=== PATIENT | male | born 1965 | race Caucasian/White ===

== ENCOUNTER → 2022-10-22 | Outpatient (CLI) | payer BC, SELFPAY ==
--- NOTE | 2022-10-22 14:27 | NEURO ---
NCS and/or EMG Patient Report Ordering Doctor: Juan Carlos Lamar DATE OF SERVICE: 10/22/22 Phill presents electrodiagnostic testing of the lower limbs. He reports tingling and pain from the right knee to the foot. He reports sharp shooting pains from the low back to the left knee. Electrodiagnostic findings: Peroneal motor nerve demonstrates normal distal latency, amplitude and conduction velocity bilaterally. Normal tibial motor response bilaterally. Sensory responses are within normal limits. Prolonged left peroneal F-wave. Prolonged H reflex bilaterally. Needle EMG testing reveals 1+ fibrillations bilaterally in the anterior tibialis, in the left vastus medialis and right gastrocnemius. 1+ fibrillations noted bilaterally in the lumbar paraspinals. Motor unit action potentials of normal amplitude and duration Electrodiagnostic impression: This is an abnormal study in the lower limbs. 1. Electrodiagnostic findings consistent with acute right L5 and S1 radiculopathy. Findings consistent with acute left-sided L4 radiculopathy. Recommend correlation with lumbar spine MRI. 2. No electrodiagnostic evidence is noted for peripheral polyneuropathy.
== END | disposition home or self-care (01) ==
LOC: PSN 12:03
PROVIDERS: PCP Family Medicine; Referring Provider Orthopaedic Surgery; Visit Provider Orthopaedic Surgery
DX: M47.26 Other spondylosis with radiculopathy, lumbar region (principal); R20.2 Paresthesia of skin
CPT/HCPCS: 95886; 95912

== ENCOUNTER 2023-04-23 07:07 | Observation (INO) | payer BC, SELFPAY ==
--- NOTE | 2023-04-01 12:01 | RAD_ITS ---
STUDY: X-RAY CHEST REASON FOR EXAM: Male, 58 years old. PREOP TECHNIQUE: XR Chest 2 Views COMPARISON: None FINDINGS: There is no demonstrated pleural abnormality. Normal size heart. Normal mediastinum and arnulfo. Normal visualized pulmonary arteries. Normal visualized aortic arch and descending thoracic aorta. There are diffuse degenerative changes of the visualized thoracic spine. Normal visualized ribs, clavicles, and shoulders. There are no acute findings of the upper abdomen. RAD/Chest PA and Lateral IMPRESSION: There are no acute findings. Electronically Signed: J Carlos Banegas MD at 14:13 EDT ,
--- NOTE | 2023-04-01 12:02 | EKG12_ITS ---
Test Reason : PREOP Blood Pressure : / mmHG Vent. Rate : 075 BPM Atrial Rate : 075 BPM P-R Int : 152 ms QRS Dur : 098 ms QT Int : 404 ms P-R-T Axes : 042 043 039 degrees QTc Int : 451 ms Normal sinus rhythm Nonspecific T wave abnormality Abnormal ECG Confirmed by ORAL GIL, CAIN ([id number]), manager editorial MAURISIO PEREZ ([id number]) on 04/02/2023 9:00:34 AM Referred By: Juan Carlos Lamar Confirmed By:ALIA MIXON MD
[2023-04-01 12:38] LABS: Absolute Lymphocyte Count 1.98 X10^3/uL (0.83-4.51); Absolute Neutrophil Count 3.7 X10^3/uL (2.0-7.7); Basophil# 0.06 X10^3/uL; Basophil% 0.9 % (0-1); Eosinophil# 0.16 X10^3/uL; Eosinophils% 2.5 % (0-5); Hematocrit 44.9 % (40-54); Hemoglobin 14.6 g/dL (13.0-16.5); Lymphocyte # 1.98 X10^3/ul (0.83-4.51); Lymphocyte % 30.4 % (19-41); Mean Corp Hgb Conc 32.5 g/dL (32-36); Mean Corpuscular Hgb 27.4 pg (27.0-32.0); Mean Corpuscular Volume 84.4 fL (80-94); Mean Platelet Vol. 9.5 fl (6.2-12.0); Monocyte# 0.57 X10^3/uL; Monocyte% 8.8 % (0-10); NRBC Flagged by Analyzer 0 % (0-5); Neutrophil % 56.8 % (47-70); Platelet Count 259 K/mm3 (150-450); RBC Distribution Width CV 13.5 % (11.6-14.6); RBC Distribution Width SD 41.4 fl (35.1-43.9); Red Blood Count 5.32 M/mm3 (4.6-6.2); White Blood Count 6.5 K/mm3 (4.4-11.0)
[2023-04-01 12:39] LABS: International Normalized Ratio 1.1; Prothrombin Time (Protime)PT. 13.8 SECONDS (11.7-14.9)
[2023-04-01 12:40] LABS: Partial Thromboplast Time 30.9 Seconds (24.1-36.2)
[2023-04-01 12:57] LABS: Anion Gap 3 (5-15); BUN 20 mg/dL (7-18); BUN/Creat Ratio 19.4 RATIO (10-20); Calcium,Total 8.7 mg/dL (8.5-10.1); Chloride 105 mmol/L (98-107); Creatinine, Serum 1.03 mg/dL (0.70-1.30); EST Glomerular Filtration Rate 79 mL/min (>60); Est Glom Filt Rate - Afr Amer 95 mL/min (>60); Glucose 129 mg/dL (74-106); Potassium 3.6 mmol/L (3.5-5.1); Sodium Level 137 mmol/L (136-145)
[2023-04-23] VITALS (21 sets, daily range): BP systolic 116–177; BP diastolic 72–102; PULSE 78–114; RESP 12–30; TEMP 36.6–37.3; O2SAT 83–98; BMI 34.7
[2023-04-23] MEDS: Lactated Ringers 1,000 ML 15 ML IV (06:53)
--- NOTE | 2023-04-23 07:04 | DS.PCM_ITS ---
Providers Date of Admission: 04/23/23 Primary Care Physician: Dr. Zion Alston MD Reason For Visit: LUMBAR 4 - LUMBAR 5, LUMBAR 5 - SAC Diagnosis Discharge Diagnosis (1) Lumbar stenosis: Status: Acute Code(s): M48.061 - Spinal stenosis, lumbar region without neurogenic claudication Medications at Discharge Home Medications acetaminophen 325 mg tablet (Pain Relief (acetaminophen)) 650 mg PO DAILY 03/30/23 amlodipine 10 mg tablet 10 mg PO DAILY 03/30/23 cetirizine 10 mg tablet (24Hour Allergy) 10 mg PO DAILY 03/30/23 hydrochlorothiazide 25 mg tablet 25 mg PO DAILY 03/30/23 latanoprost 0.005 % eye drops 1 drp ophthalmic (eye) DAILY 03/30/23 hydrocodone-acetaminophen 5-325mg 5mg-325mg 1 tab PO Q6H 7 days #28 tabs 04/23/23 Hospital Course Operations - (L4-5, L5-S1 posterior lumbar interbody fusion, decompression, posterior spinal fusion with instrumentation, use of allograft) Summary of Care Provided Minutes Spent on Discharge: 15 Hospital Course: The patient is a 58-year-old male who underwent L4-5, L5-S1 fusion on 04/23/2023. He was subsequently admitted. The hospitalist was consulted for medical management. He progressed well. His pain was controlled and he was mobilizing well. His drain was pulled on postoperative day 1. No significant medical issues were reported. He was subsequently discharged home on 04/24/2023 to follow-up with Dr. Lamar in 3 weeks Physical Exam Const alert, oriented x3 and no apparent distress General Appearance: cooperative, comfortable and well kempt HEENT normocephalic and head/scalp atraumatic Head and Scalp: normal to inspection Eyes EOMs intact bilaterally and conjunctivae normal Neck full ROM General: normal visual inspection Chest inspection of chest normal and palpation of chest normal Resp normal respiratory effort and normal air movement Effort and Inspection: able to speak in complete sentences Cardio regular rate and peripheral pulses 2+ throughout GI soft to palpation, non-tender and non-distended Back/Spine Back/Spine Narrative: Dressing clean dry and intact. Incision well approximated with interrupted sutures in place. Drain pulled Cervical Spine: cervical ROM normal Thoracic Spine / Upper Back: normal to inspection Lumbar Spine / Lower Back: normal to inspection Extremity normal to inspection, full ROM, normal capillary refill, no clubbing, cyanosis or edema and no calf tenderness Skin no rashes or lesions noted General Skin Exam: no breakdown Neuro oriented x3, CN's II-XII intact bilaterally, moves all extremities, no focal motor deficits, no sensory deficits noted and deep tendon reflexes 2+ bilat erally Motor Exam: strength 5/5 throughout and muscle tone normal throughout Weight / BMI Weight Weight: 242 lb 8.136 oz Body Mass Index (BMI) 34.7 ABG / Lab / Microbiology Data 04/01/23 12:20 04/01/23 12:20 D/C Instructions Discharge Diet: No restrictions Weight Bearing Status: Weight bearing as tolerated Additional Activity Instructions: No repetitive bending twisting or lifting g reater than 5 pounds. Wear back brace at all times Call your doctor if your incision/area has: Continuous Slow Oozing, Sudden Increased Bleeding, Increased Pain/ Swelling, Increased Redness, Foul Smelling Discharge and Swelling at the incision site Call your doctor if you observe: Fever of 101 or Higher, Coldness, Increased Pain, Numbness or Tingling, Change in Color, Inability to urinate, Inability to have a bowel movement, Using more than 1 pad per hour, Shortness of breath, Dizziness, Fainting spells, Swelling in the ankles, Chest pain, Prolonged hiccupping, Increased palpitations (irregular heartbeat), Calf discomfort and Uncontrolled pain Cleanse incision/area with: Do not get Incision Wet and Keep Dressing Clean & Dry Additional Dressing/Incision Instructions: Change dressing daily with iodine gauze and tape. Use waterproof dressing to shower Additional Instructions: 1. During your procedure, you received sedation through your IV. Please follow these instructions for the next 24 hours: Do not drive a motor vehicle, do not drink any alcoholic beverages, and do not sign any legal documents or make personal or business decisions. A responsible adult should stay with you at least 6 hours after the procedure. 2. Keep your surgical site/incision clean and the dressing dry and intact. You may use an ice pack at the surgical site to reduce any swelling or discomfort. 3. Monitor the incision site for any signs or symptoms of infection. Watch for redness, excessive swelling or drainage, or continued pain at the incision site after 3 days. Contact your physician immediately for a fever, chills or a temperature of 101.5? F or greater. 4. Take your medication exactly as prescribed by your physician. Do not attempt to wean yourself off any of your medications even though your pain is improving. This process needs to be carefully monitored by your doctor. Take any antibiotics prescribed exactly as directed and until they are gone. 5. Avoid stretching, bending, pulling, twisting or any sudden movements. Do not bend or twist at the waist. Wear back brace at all times 6. No lifting greater than 5 pounds. 7. Do not operate a motor vehicle, equipment or a power tool while taking pain medication 8. Do not have any manipulation done by a chiropractor or any other physician without first consulting with the surgeon 9. Please contact our office if you are even scheduled for a CT scan or an MRI. 10. Please call us if you have any questions, problems or concerns. Please Follow Up With: Juan Carlos Lamar DO When: 3 weeks Meaningful Use Info Meaningful Use Diagnoses (Choose all that apply): None applicable Discharge Plan Admission Admit Date/Time: 04/23/23 07:07 Attending Provider: Juan Carlos Lamar Primary Care Provider: Zion Alston Consulting Providers: Lovely Gupta Instructions Additional Instructions / Restrictions: 1. During your procedure, you received sedation through your IV. Please follow these instructions for the next 24 hours: Do not drive a motor vehicle, do not drink any alcoholic beverages, and do not sign any legal documents or make personal or business decisions. A responsible adult should stay with you at least 6 hours after the procedure. 2. Keep your surgical site/incision clean and the dressing dry and intact. You may use an ice pack at the surgical site to reduce any swelling or discomfort. 3. Monitor the incision site for any signs or symptoms of infection. Watch for redness, excessive swelling or drainage, or continued pain at the incision site after 3 days. Contact your physician immediately for a fever, chills or a temperature of 101.5? F or greater. 4. Take your medication exactly as prescribed by your physician. Do not attempt to wean yourself off any of your medications even though your pain is improving. This process needs to be carefully monitored by your doctor. Take any antibiotics prescribed exactly as directed and until they are gone. 5. Avoid stretching, bending, pulling, twisting or any sudden movements. Do not bend or twist at the waist. Wear back brace at all times 6. No lifting greater than 5 pounds. 7. Do not operate a motor vehicle, equipment or a power tool while taking pain medication 8. Do not have any manipulation done by a chiropractor or any other physician without first consulting with the surgeon 9. Please contact our office if you are even scheduled for a CT scan or an MRI. 10. Please call us if you have any questions, problems or concerns. Discharge Orders/Prescriptions Prescriptions: New hydrocodone-acetaminophen 5-325 mg tablet 1 tab PO Q6H 7 Days Qty: 28 0RF Continued amlodipine 10 mg tablet 10 mg PO DAILY Patient Comments: TAKE 1 TABLET BY MOUTH EVERY DAY hydrochlorothiazide 25 mg tablet 25 mg PO DAILY Patient Comments: TAKE 1 TABLET BY MOUTH EVERY DAY latanoprost 0.005 % drops 1 drp ophthalmic (eye) DAILY Patient Comments: INSTILL 1 DROP INTO BOTH EYES AT BEDTIME DIRECTED acetaminophen [Pain Relief (acetaminophen)] 325 mg tablet 650 mg PO DAILY cetirizine [24Hour Allergy] 10 mg tablet 10 mg PO DAILY Discontinued meloxicam 15 mg tablet 15 mg PO DAILY Patient Comments: TAKE 1 TABLET BY MOUTH EVERY DAY Other Ambulatory Orders: 12 Lead EKG (Routine) Timeframe: [id number] Location: None Selected Ordered By: Dr. Juna Carlos Lamar Referrals / Follow Up: Juan Carlos Lamar DO [Med Staff - Active Staff] - Zion Alston MD [Primary Care Provider] - Disposition Disposition (needs filled in before D/C Order can be placed): Home, Self Care
--- NOTE | 2023-04-23 07:04 | OP.PCM_ITS ---
Problems Associated Problem List Diagnoses (1) Lumbar stenosis: Report of Operation Date of Procedure: 04/23/23 Description of Surgical Findings:: Preop diagnosis: 1. Lumbar stenosis L4-5, L5-S1 with spondylosis 2. Lumbar degenerative disc disease L4-5, L5-S1 Postop diagnosis: 1. Lumbar stenosis L4-5, L5-S1 with spondylosis 2. Lumbar degenerative disc disease L4-5, L5-S1 Procedures performed: 1. L4-5 posterior lumbar interbody fusion 2. L5-S1 posterior lumbar interbody fusion 3. Insertion of intervertebral biomechanical device x2 4. Structural allograft for spinal fusion 5. L4 bilateral laminectomies, foraminotomies, facetectomies, decompression of bilateral nerve roots 6. L5 bilateral laminectomies, foraminotomies, facetectomies, decompression of bilateral nerve roots 7. S1 bilateral laminectomies, foraminotomies, facetectomies, decompression of bilateral nerve roots 8. L4-5 posterolateral fusion 9. L5-S1 posterior lateral fusion 10. Pedicle screw fixation 11. Local autograft for spinal fusion 12. Neuro monitoring bilateral upper and bilateral lower extremities Statement of medical necessity: The patient is a 58-year-old male with intractable back and leg pain. Image studies confirm the above diagnoses. They have failed conservative treatments to include medications physical therapy and injections and have opted for operative intervention understanding the risk to include but not limited to infection, bleeding, damage to nerves arteries and veins, possibility of spinal fluid leak, nonunion, hardware failure, continued pain, need for further surgery, deep vein thrombosis, pulmonary embolism, heart attack, risk of stroke or . Description of the procedure: The patient was identified in the preoperative holding area. There they received preoperative IV antibiotics and was then transferred to the operative suite. Once in the operative suite after general endotracheal anesthesia was established, the patient was positioned prone on the [place] operating table. All bony prominences were padded accordingly. The lumbar spine was prepped and draped in a standard fashion. Bear hugger's were not turned on until the drapes were placed and sealed with Ioban. A midline incision was made and taken down to the fascia. The fascia was divided and subperiosteal dissection was taken down to the level of the transverse processes and sacral ala of L4, L5, and S1 bilaterally. Deep retractors were placed. A bone scalpel was used to make cuts in the lamina and then a series of rongeurs and Kerrisons were used removing the spinous process and lamina of L4, L5, and S1. Then facetectomies of greater than 50% were performed as well as foraminotomies decompressing the bilateral nerve roots. Given the severity of the stenosis I needed to perform wide bilateral laminectomies and near complete facetectomies in order to decompress the neural elements. Disc created instability necessitating the fusion. I then proceeded with interbody fusion. The nerve roots and dura were identified and retracted medially. A knife was utilized to perform an annulotomy at L4-5. Endplate elevators, curettes, and pituitaries were utilized to remove disc material. Endplates were prepared with a rasp. An appropriate sized intervertebral peek cage device measuring 11 mm was packed with structural allograft and impacted into position completing the posterior lumbar interbody fusion at the L4-5 level. The same steps were repeated at L5-S1. The nerve root and dura were identified and retracted medially. A knife was utilized to perform an annulotomy at L5-S1. Endplate elevators, curettes, and pituitaries were utilized to remove disc material. Endplates were prepared with a rasp. An appropriate size intervertebral peek cage device measuring 10 mm was packed with structural allograft and impacted into position completing the posterior lumbar interbody fusion at the L5-S1 level. I then proceeded with pedicle screw fixation. Starting points were found at the junction of the superior articular process and transverse processes and sacral ala of L4, L5, and S1. A power bur was used for the starting points. Pedicle probes were placed bilaterally and then 6.5 x 55 mm screws were placed bilaterally at L4 and L5, and 6.5 x 40 mm screws were placed bilaterally at S1. The screws were tested with intraoperative neurophysiologic monitoring and tested within normal limits. Connector rods were applied and secured with set screws. I then proceeded with the posterolateral fusion. This was accomplished by decorticating the transverse processes bilaterally at L4 and L5 and the sacral ala bilaterally at S1. This decorticated bone was then bridged with local autograft from the decompression as well as morselized cancellous allograft completing the posterolateral fusion of the L4-5 and L5-S1 levels. The incision was thoroughly irrigated. Tisseel was placed over the dura as a hemostatic agent. A deep drain was placed. The fascia was closed with #1 Vicryl, subcutaneous with 2-0 Vicryl and skin with 2-0 nylon. A sterile dressing was applied with 4 x 4's ABD and tape. Sponge instrument and needle counts were correct at the end of the case. Neurophysiologic monitoring was maintained at baseline throughout the duration of the case. The patient was extubated and taken to the PACU without incident Surgeon: Juan Carlos Lamar Type of Anesthesia: General Drains: Hemovac Estimated Blood Loss (mL): 200 cc Fluids Replaced: 2800 cc Grafts/Implants Used: Unified spine, talos Complications None Admit VTE Documentation VTE Present on Admission: No
--- NOTE | 2023-04-23 07:04 | PCM.PN.ORT ---
Subjective Subjective Seen and examined postop. Resting comfortably. Pain controlled. He was having some respiratory issues and anesthesia felt he was having pulmonary edema. A stat chest x-ray was ordered which was negative. He was placed on BiPAP Objective Data Objective Data Vital Signs: Vital Signs Temp Pulse Resp BP Pulse Ox O2 Del Method 99.2 F H 81 16 140/83 H 98 Room Air 04/23/23 06:29 04/23/23 06:29 04/23/23 06:29 04/23/23 06:29 04/23/23 06:29 04/23/23 06:29 Oxygen Delivery Method Room Air Weight: 242 lb 8.136 oz Body Mass Index (BMI) 34.7 Lab / Micro Data 04/01/23 12:20 04/01/23 12:20 Physical Exam Const alert, oriented x3 and no apparent distress General Appearance: cooperative and comfortable HEENT normocephalic and head/scalp atraumatic Head and Scalp: normal to inspection Eyes EOMs intact bilaterally and conjunctivae normal Neck full ROM General: normal visual inspection Chest inspection of chest normal and palpation of chest normal Resp normal respiratory effort and normal air movement Cardio regular rate, regular rhythm and peripheral pulses 2+ throughout GI soft to palpation, non-tender and non-distended Back/Spine Back/Spine Narrative: Dressing clean dry and intact. Drain in place and functioning Cervical Spine: cervical ROM normal Thoracic Spine / Upper Back: normal to inspection Lumbar Spine / Lower Back: normal to inspection Extremity normal to inspection, full ROM, normal capillary refill, no clubbing, cyanosis or edema and no calf tenderness Skin no rashes or lesions noted General Skin Exam: no breakdown Neuro oriented x3, CN's II-XII intact bilaterally, moves all extremities, no focal motor deficits, no sensory deficits noted and deep tendon reflexes 2+ bilaterally Motor Exam: strength 5/5 throughout and muscle tone normal throughout Assessment & Plan Assessment/Plan (1) Lumbar stenosis: PLAN: Okay to admit to floor See orders Discharge planning likely home tomorrow
[2023-04-23] MEDS: Cefazolin 2 GM in 0.9% Normal Saline 100 ML IV (07:29)
--- NOTE | 2023-04-23 07:49 | RAD_ITS ---
STUDY: X-RAY - LUMBAR SPINE REASON FOR EXAM: Male, 58 years old. Intraoperative digital documentation views of L4-S1 fusion. TECHNIQUE: 4 intraoperative digital documentation view(s) of the lumbar spine were obtained. COMPARISON: None FINDINGS: 4 intraoperative digital documentation views show posterior fusion from L4 to S1 with intervertebral disc prostheses. RAD/Lumbar Spine 2 or 3 Views IMPRESSION: Intraoperative digital documentation views. Electronically Signed: Zuhair Adams MD at 10:58 EDT ,
[2023-04-23] MEDS: Heparin 10,000 UNITS/10 ML Vial 10000 UNITS (08:26)
[2023-04-23] MEDS: THROMBIN (RECOMBINANT) 20,000 UNIT VIAL 20000 UNIT TOPICAL (09:00)
[2023-04-23] MEDS: Bupivacaine 0.25% 30 ML Vial (12:30)
--- NOTE | 2023-04-23 13:27 | RAD_ITS ---
STUDY: X-RAY CHEST REASON FOR EXAM: Male, 58 years old. Obstruction. TECHNIQUE: Single frontal view of the chest. COMPARISON: Chest dated April 01, 2023. FINDINGS: Low volume inspiration with bibasilar atelectasis and vascular crowding. Linear opacities in both mid lung zones also compatible with atelectasis. Cardiomegaly with aortic tortuosity, unchanged. No abnormality of the visualized soft tissue structures of the upper abdomen. RAD/Chest 1 View (Portable) IMPRESSION: Cardiomegaly with interval development of low volume inspiration and bibasilar atelectasis. No focal consolidation or acute finding. Electronically Signed: Zuhair Adams MD at 14:24 EDT ,
--- NOTE | 2023-04-23 13:55 | CPS ---
Called to PACU, Dr Wolf requested BiPAP on patient for snoring/obstructing respirations and high O2 need. NRB mask and oral airway removed and BiPAP initiated. Patient tolerated well. Weaned to 40%. Patient began waking, BiPAP removed at 1355, patient placed on 5lpm nasal cannula. RN at bedside.
--- NOTE | 2023-04-23 15:35 | NURSING ---
AWAKE ENOUGH TO FOLLOW COMMANDS NOW PUSH/PULL TO FEET AND ARMS STRONG.
[2023-04-23] MEDS: Lactated Ringers 1,000 ML 100 ML IV ×2 (16:32→21:37)
[2023-04-23] MEDS: Acetaminophen 500 MG Tablet 1000 MG PO ×2 (16:57→21:36)
[2023-04-23] MEDS: Cefazolin 1 GM/50 ML BAG IV ×2 (16:57→21:38)
[2023-04-23] MEDS: oxyCODONE 5 MG Tablet PO ×2 (16:57→21:36)
--- NOTE | 2023-04-23 17:19 | PN.HOSP_ITS ---
Reason for Visit Reason for Visit: Diagnoses Spinal stenosis, lumbar region without neurogenic claudication (04/23/23) Encounter for other preprocedural examination (04/23/23) Subjective Subjective Medicine consulted for medical management for patient after his lumbar fusion surgery. Patient seen at bedside. Patient lying comfortably in bed, sleeping when I arrived to room, in no acute distress. Per orthopedic notes, he apparently had some respiratory distress after coming out of anesthesia. Did require BiPAP for short time. On my exam, he was satting well on room air and had no increased work of breathing. States that he has minimal back pain at this time at the incision site. He denies any nausea or vomiting postop. Denies any numbness or tingling down his legs. Denies any fevers or chills. No other acute concerns. Objective Data Objective Data Vital Signs: Vital Signs Temp Pulse Resp BP Pulse Ox O2 Del Method O2 Flow Rate 98.2 F 96 18 145/96 H 95 Nasal Cannula 2 04/23/23 16:24 04/23/23 16:24 04/23/23 16:24 04/23/23 16:24 04/23/23 16:24 04/23/23 16:29 04/23/23 16:29 FiO2 40 04/23/23 14:00 Oxygen Flow Rate (L/min) 2 Oxygen Delivery Method Nasal Cannula Weight: 110 kg Body Mass Index (BMI) 34.7 Intake & Output: Intake and Output for Last 24 Hours 04/21/23 04/22/23 04/23/23 23:59 23:59 23:59 Intake Total 110 / 110 Output Total 375 / 375 Balance -265 / -265 Lab / Micro Data 04/01/23 12:20 04/01/23 12:20 Radiography Diagnostic Testing: Radiology Impression Chest X-Ray 04/23/23 13:27 IMPRESSION: Cardiomegaly with interval development of low volume inspiration and bibasilar atelectasis. No focal consolidation or acute finding. Electronically Signed: Zuhair Adams MD at 14:24 EDT , Physical Exam Const alert and oriented x3 Constitutional Narrative: Pleasant male, obese, appears fatigued, conversing normally, no acute distress. General Appearance: cooperative, comfortable, well kempt and well developed HEENT normocephalic, head/scalp atraumatic, hearing grossly normal bilaterally, nasal mucous membranes and turbinates normal and moist oral mucous membranes Eyes PERRL, EOMs intact bilaterally and conjunctivae normal Neck full ROM, no lymphadenopathy and supple Lymph Lymphatic: no lymphadenopathy noted Chest inspection of chest normal Resp normal respiratory effort, normal air movement, no use of accessory muscles and clear to auscultation bilaterally Cardio regular rate, regular rhythm, no murmurs and peripheral pulses 2+ throughout GI normal to inspection, nondistended, normoactive bowel sounds, soft to palpation, non-tender and non-distended Back/Spine Back/Spine Narrative: Dressing over operative site, appears clean. Extremity normal to inspection, full ROM and no pedal edema Skin no rashes or lesions noted Psych mental status grossly normal Assessment & Plan Assessment/Plan (1) Lumbar stenosis: PLAN: Plan Patient is a 58-year-old male with history of lumbar stenosis and hypertension who presented to [facility] on 04/23/2023 for a planned lumbar fusion procedure. 1. Lumbar stenosis s/p spinal fusion - S/p procedure with orthopedics on 04/19/2023. Patient tolerated procedure well, reports minimal postop pain or discomfort. PT/OT/case management consulted. Pain control with scheduled Tylenol, oxycodone as needed and IV morphine as needed. CBC and BMP ordered for tomorrow morning. Likely stable for discharge home tomorrow. 2. Hypertension ? Mildly hypertensive postop. Continue home amlodipine and hydrochlorothiazide. DVT prophylaxis: SCDs CODE STATUS: Full code, unverified Expected disposition: Home, 1 to 2 days Total clinical time spent by myself addressing the patient's medical issues, reviewing all the data, and collaborating with patient's care team: 25 minutes. Charges/Coding Visit Charges Inpatient E&M: [id number] [facility] L1
[2023-04-24 00:25] VITALS: BP 149/85; PULSE 90; RESP 18; TEMP 36.6; O2SAT 97
[2023-04-24 04:25] VITALS: BP 148/73; PULSE 81; RESP 18; TEMP 36.5; O2SAT 97
[2023-04-24] MEDS: Acetaminophen 500 MG Tablet 1000 MG PO (06:11)
[2023-04-24] MEDS: Lactated Ringers 1,000 ML 100 ML IV (06:15)
[2023-04-24 07:48] VITALS: BP 140/82; PULSE 89; RESP 16; TEMP 36.9; O2SAT 94
[2023-04-24] MEDS: Ensure Surgery 237 ML LIQUID PO ×2 (08:02→12:02)
[2023-04-24] MEDS: hydroCHLOROthiazide 25 MG Tablet PO (10:41)
[2023-04-24] MEDS: amLODIPine 10 MG Tablet PO (10:41)
[2023-04-24] MEDS: Loratadine 10 MG Tablet PO (10:41)
--- NOTE | 2023-04-24 11:25 | CASEMGMT ---
JOSEP KATE Discharge Planning Assessment: Face to Face with patient for initial transition planning/care coordination assessment.?JOSEP KATE introduced self and role at [facility], pt alert, sitting up in chair, voices understanding and is agreeable to participating in assessment.? Care providers, pharmacy,?and demographics verified. ? Admitting dx: lumbar stenosis PCP: Gamaliel Cassidy) Specialists: Joseph Lamar [facility] for his glaucoma Preferred Pharmacy: [facility] [place] Insurance: [employer] Benefit: yes? LNOK: Yuli, S.O. Living Arrangements: Pt lives with his S.O. and 8yo son in a single story home with 3-4 steps to enter. Pt states he is independent with ADLs at baseline and S.O. will be able to assist him as needed upon returning home. Transportation: pt drives and his S.O. is able to assist as needed DME: built in seat in shower, elevated toilet seat HHC/SNF: pt denies any previous providers ? Plan: Return home with support of his S.O. Pt states he would like a walker at discharge and is agreeable to [facility] to supply. Pt denies any additional needs. Max Liu RN CM
--- NOTE | 2023-04-24 13:40 | CASEMGMT ---
JOSEP KATE Follow-up: Script received from Dr. Lamar for wheeled walker. [facility] to [facility] via [facility] and nursing supervisor putty and caluking notified of need. Standard FWW obtained and provided to pt. Pt signed [facility] form. Pt denies any additional DC needs or concerns at this time. DC Plan: Home w/S.O. and FWW Max Liu RN CM
== END 2023-04-24 14:30 | disposition home or self-care (01) ==
LOC: MS3 13:39 → SDC 15:53 → MS3 04-24 07:08
PROVIDERS: Admitting Provider Orthopaedic Surgery; PCP Family Medicine; Referring Provider Orthopaedic Surgery; Visit Provider Orthopaedic Surgery
PROC: (CPT 22633; principal; 2023-04-23 07:00)
DX: M48.061 Spinal stenosis, lumbar region without neurogenic claudication (principal); M47.27 Other spondylosis with radiculopathy, lumbosacral region; J81.1 Chronic pulmonary edema; M51.36 Other intervertebral disc degeneration, lumbar region; I10 Essential (primary) hypertension; Z79.899 Other long term (current) drug therapy; F17.220 Nicotine dependence, chewing tobacco, uncomplicated; M47.26 Other spondylosis with radiculopathy, lumbar region; E66.8 Other obesity; Z68.35 Body mass index [BMI] 35.0-35.9, adult; R94.31 Abnormal electrocardiogram [ECG] [EKG]
CPT/HCPCS: 22633; 20930; 63053 ×2; 22634; 20936; 22853 ×2; 63052; 22842; 00670; 36415; 71045; 71046; 72100; 76000; 80048; 85025; 85610; 85730; 93005; 94002; 94668; 96361; 96365; 96366; 97162; 97166; 99221; 99252; C1713; J7120; G0378; G0463; J2405